=== PATIENT | female | born 1935 | race Caucasian/White ===

== ENCOUNTER 2019-04-15 09:57 | Outpatient (RCR) | payer MEDICARE, OTHER | END 2019-04-19 | LOC: PT 09:57 | PROVIDERS: ATTEND Internal Medicine | DX: S83.282A Other tear of lateral meniscus, current injury, left knee, initial encounter (principal); S83.242A Other tear of medial meniscus, current injury, left knee, initial encounter; M17.12 Unilateral primary osteoarthritis, left knee; M25.562 Pain in left knee; M25.662 Stiffness of left knee, not elsewhere classified; M62.81 Muscle weakness (generalized); R26.2 Difficulty in walking, not elsewhere classified ==

== ENCOUNTER 2019-09-18 11:30 | Observation (INO) | payer MEDICARE, OTHER ==
[2019-09-16 15:09] LABS: BASOPHILS % 0.5 % (0.0-1.0); EOSINOPHILS # (AUTO) 0.2 (0.0-0.4); EOSINOPHILS % 2.3 % (0.0-6.0); HEMATOCRIT 36.4 % (34.2-44.1); HEMOGLOBIN 12.2 g/dL (12.0-16.0); LYMPHOCYTES # (AUTO) 1.7 (1.0-3.2); LYMPHOCYTES % 20.3 % (18.0-39.1); MEAN CORPUSCULAR HEMOGLOBIN 30.6 pg (28-32); MEAN CORPUSCULAR HGB CONC 33.5 g/dL (31-35); MEAN CORPUSCULAR VOLUME 91.2 fL (81-99); MONOCYTES # (AUTO) 0.8 (0.2-0.8); MONOCYTES % 10.2 % (4.4-11.3); NEUTROPHILS # (AUTO) 5.4 (2.1-6.9); NEUTROPHILS % 66.3 % (38.7-80.0); PLATELET COUNT 336 x10e3/uL (140-360); RED BLOOD COUNT 3.99 x10e6/uL (3.6-5.1)
--- NOTE | 2019-09-16 16:10 | Diagnostic Imaging Report ---
EXAMINATION: PA and lateral views of the chest. COMPARISON: None CLINICAL HISTORY: Preoperative study for back surgery DISCUSSION: The lungs are hyperinflated with increased AP diameter of the chest. No focal airspace consolidation, pleural effusion, or pneumothorax. Mild right apical pleural-parenchymal scar. Tortuosity and atherosclerotic calcification of the thoracic aorta. Normal heart size without overt pulmonary edema. Cervical spine fusion hardware and surgical anchor in the right humeral head are noted. The bones are diffusely osteopenic without acute osseous abnormality. IMPRESSION: No acute cardiopulmonary abnormalities. Pulmonary hyperinflation compatible with emphysema. Signed by: Dr. Napoleon Torres M.D. on 09/16/2019 4:07 PM
[~2019-09-18] VITALS: Ht 153.4 cm; Wt 54.9 kg
[~2019-09-18 11:30] MED LIST: ACIDOPHILUS1 EAC1 PO; BIOTIN2500 MCG PO; BUPROPION HCL100 MG PO; CALCIUM-MAGNES1 EAC8 PO; CENTRUM SILVER1 EAC3 PO; CETIRIZINE HCL10 MG PO; COQ-10100 MG PO; CRANBERRY200 MG PO; FLAXSEED1000 MG PO; HYDROCODONE-IB1 EAC1 PO; I CAP PO; LEVOTHYROXINE50 MCG PO; METHOCARBAMOL750 MG PO; MILK THISTLE140 M1 PO; OMEGA-3 1,0001 EACH PO; PANTOPRAZOLE SO40 MG PO; PLAVIX75 MG PO; PREDNISONE2.5 MG PO; PREDNISONE50 MG; SIMVASTATIN40 MG PO; TRIMETHOPRIM100 MG PO; VITAMIN C500 M4 PO; [UNRECOGNIZED DRUG - OTHER] PO
--- OUTSIDE RECORDS SUMMARY | 2019-09-18 11:33 | XMS REPORT ---
Author Author [facility] Address Unknown Phone Unavailable Care Team Providers Care Twisting Press Operator Name Role Phone SHIVAM MATTHEWS Unavailable Unavailable Problems This patient has no known problems. Allergies, Adverse Reactions, Alerts This patient has no known allergies or adverse reactions. Medications This patient has no known medications. Encounters Start Date/Time End Date/Time Encounter Type Admission Type Attending Clinicians Care Facility Care Department Encounter ID 2019-08-10 14:21:00 2019-08-10 14:21:00 Emergency E [facility] [id number] 2019-06-03 21:20:00 2019-06-03 21:20:00 Emergency E [facility] MED [id number] Results Test Description Test Time Test Comments Text Results Atomic Results Result Comments CHEST 2 VIEWS 2019-09-16 16:05:00 [place] [id number] Patient Name: SHAHID TAPIA MR #: [id number] : 1935 Age/Sex: 83/F Req #: [id number] Adm Physician: Ordered by: ALMA HANNA MD Report #: [id number] Location: DX Room/Bed: Procedure: [id number] DX/CHEST 2 VIEWS Exam Date: 09/16/19 Exam Time: 1520 REPORT STATUS: Signed EXAMINATION: PA and lateral views of the chest. MARCI RISON: None CLINICAL HISTORY: Preoperative study for back surgery DISCUSSION: The lungs are hyperinflated with increased AP diameter of the chest. No focal airspace consolidation, pleural effusion, or pneumothorax. Mild right apical pleural-parenchymal scar. Tortuosity and atherosclerotic calcification of the thoracic aorta. Normal heart size without overt pulmonary edema. Cervical spine fusion hardware and surgical anchor in the right humeral head are noted. The bones are diffusely osteopenic without acute osseous abnormality. IMPRESSION: No acute cardiopulmonary abnormalities. Pulmonary hyperinflation compatible with emphysema. Signed by: Dr. Ayaan Hawk M.D. on 09/16/2019 4:07 PM Dictated By: AYAAN HAWK MD 1607 Transcribed By: JULIANN on 09/16/19 1607 COPY TO: ALMA HANNA MD SCR MAMM BILATERAL RAE CAD DIGITAL 2019-05-30 10:32:11 - SCR MAMM BILATERAL RAE CAD DIGITALBILATERAL DIGITAL SCREENING MAMMOGRAM 3D/2D WITH CAD: 05/30/2019CLINICAL: Asymptomatic. Digital breast tomosynthesis was performed in addition to routine CC and MLO views. Current mammographic images were evaluated by either a [employer] M-Vu or a [employer] ImageChecker CAD (computer aided detection system). Comparison is made to exams dated 05/20/2018 mammogram, 04/21 mammogram, and 05/08/2016 mammogram - [facility]. There are scattered fibroglandular tissues in both breasts. No suspicious mass, architectural distortion, malignant type calcification, or lymph node abnormality detected. Breast architecture is stable compared to prior exams.IMPRESSION: NEGATIVEThere is no mammographic evidence of malignancy. Resume annual screening mammography in one year. Tina Jacques M.D. ar/penrad:05/30/2019 10:32:11 Thimble Press Operator: Aleena ST, [facility] sent: BIRADS 1-2 Normal Mammogram BI-RADS: 1 Negative
--- OUTSIDE RECORDS SUMMARY | 2019-09-18 11:33 | XMS REPORT | Summary of Care ---
Author Author [facility] - Health Organization [facility] - Health Address Unknown Phone Unavailable Care Team Providers Care Dog Behaviorist Name Role Phone Violette Deleon MD PCP Reason for Visit * Reason Comments Medical Records Encounter Details Care Team Description Date Type Department Violette Deleon MD [address] [place] [address] Medical Records 04/18/2019 Telephone [facility] [address] [place] [address] Allergies No Known Allergiesdocumented as of this encounter (statuses as of 04/18/2019) Medications End Date Status Medication Sig Dispensed Refills Start Date Active OMEGA-3 FATTY ACIDS/FISH Take 360 mg 0 OIL (OMEGA 3 FISH OIL by mouth ORAL) daily. Takes 4 caps daily Active Biotin 10,000 mcg Cap Take 10,000 0 mcg by mouth daily. Takes 2 caps daily Active FOLIC Take by 0 ACID/MULTIVIT-MIN/LUTEIN mouth daily. (CENTRUM SILVER ORAL) Active MAGNESIUM ORAL Take 500 mg 0 by mouth 2 (two) times daily. Active LACTOBACILLUS ACIDOPHILUS Take 50 0 (ACIDOPHILUS ORAL) billion units by mouth daily. Takes 2 daily Active FLAXSEED OIL ORAL Take 1.2 g by 0 mouth daily. Active COQ10, LIPOSOMAL Take 200 mg 0 UBIQUINOL, ORAL by mouth daily. Active MILK THISTLE ORAL Take by 0 mouth daily. Active Cetirizine 10 mg capsule Take 10 mg by 0 mouth daily. Active calcium carbonate 500 mg Take 1 0 calcium (1,250 mg) capsule by 7 capsule mouth 2 (two) times daily with meals. Active clopidogrel 75 mg Take 1 tablet 90 tablet 3 tabletIndications: by mouth 9 Coronary artery disease daily. involving [place] coronary artery of [place] heart without angina pectoris, Transient cerebral ischemia, unspecified type Active levothyroxine 25 mcg Take 1 tablet 90 tablet 3 tablet by mouth 9 every morning. Active estradiol (ESTRACE) 0.01 Insert 0.5 g 42.5 g 1 % (0.1 mg/gram) vaginal into vagina 9 creamIndications: weekly. Recurrent UTI Active trimethoprim 100 mg Take 1 tablet 90 tablet 2 tablet by mouth 9 daily. Active pantoprazole 40 mg EC Take 1 tablet 90 tablet 1 tabletIndications: by mouth 9 Gastroesophageal reflux daily. disease, esophagitis presence not specified Active PREDNISONE 2.5 mg TAKE 1 TABLET 90 tablet 1 tabletIndications: BY MOUTH 9 Secondary adrenal EVERY MORNING insufficiency Active buPROPion XL (WELLBUTRIN Take 2 180 tablet 1 XL) 150 mg 24 hr tablet tablets by 9 mouth daily. Active simvastatin 40 mg TAKE 1 TABLET 90 tablet 1 tabletIndications: Mixed BY MOUTH AT 9 hyperlipidemia BEDTIME documented as of this encounter (statuses as of 04/18/2019) Active Problems Patient Care Coordination Note Hypertension (High Blood Pressure) Plan of Care My Hypertension Goals are the following: ? Strive for a normal blood pressure of less than 140/90 ? Cholesterol- LDL ( Bad cholesterol )- less than 130 (if I have diabetes and heart disease goal is less than 70) ? Total Cholesterol- less than 200 ? Lose weight if overweight or obese and follow the Weight Loss Care Plan ? Stop smoking and avoid second hand smoke My Hypertension Care Plan includes the following: ? Check and record blood pressure at least once a week and write results on blood pressure log ? Exercise at least 30 minutes a day 5 days a week. This can be in three 10 minute intervals ? Maintain a healthy weight ? Follow a DASH diet (Dietary Approaches to Stop Hypertension) o Eat a diet rich in fruits, vegetables, and low fat dairy products and low in saturated and total fat o Reduce dietary sodium to below 1500mg per day o Limit alcohol to two drinks per day for most men and one drink per day for most women and general internist weight men ? If I am a smoker, stop smoking ? Manage stress by identifying three ways to reduce stress ? BetBoxhart ([email or web address]) is an online tool that will allow me to review lab results and portions of my health record, and to communicate with healthcare providers as needed. If I do not have a JolieBox account, I will discuss this with my healthcare team Problem Noted Date Bilateral carotid artery stenosis 11/29/2018 Overview: Dr. Chester Landon, rec'd medical therapy Adrenal insufficiency 09/18/2018 Asthma 10/18/2016 Overview: [facility] Left leg weakness 08/08/2016 Balance problem 08/08/2016 Hypercortisolemia 07/12/2016 Chronic back pain greater than 3 months duration 12/23/2015 Truncal muscle weakness 12/23/2015 Incomplete RBBB 07/13/2015 Overview: on ekg Vitamin D deficiency 12/08/2014 Overview: ICD10 Diagnosis Term Marketing Production Coordinator Utility Elevated LFTs 05/28/2014 Overview: viral hepatitis panel negative 01/11/16 Hyponatremia 06/04/2012 Abnormal CBC 06/04/2012 Senile osteoporosis 05/10/2012 Hypothyroidism 05/10/2012 Overview: ICD10 Diagnosis Term Marketing Production Coordinator Utility Personal history of other diseases of digestive system Hyperlipidemia GERD (gastroesophageal reflux disease) Essential hypertension, benign Depressive disorder Overview: ICD10 Diagnosis Term Marketing Production Coordinator Utility CAD (coronary artery disease) Overview: [facility]s [facility] Dr. Landon at [facility], non-occlusive, normal MIBI 10/06 MVP (mitral valve prolapse) Overview: Dr. Chester Landon, echo in 08/2018 with EF 60% TIA (transient ischemic attack) Overview: On plavix DJD (degenerative joint disease), lumbar Overview: has had previous injections CKD (chronic kidney disease) stage 3, GFR 30-59 ml/min Overview: gfr 53 01/11/16; increasing creatinine Dextroscoliosis documented as of this encounter (statuses as of 04/18/2019) Resolved Problems Problem Noted Date Resolved Date HLD (hyperlipidemia) 05/26/2013 07/13/2015 Other malaise and fatigue 05/10/2012 07/13/2015 documented as of this encounter (statuses as of 04/18/2019) Immunizations Name Administration Dates Next Due Influenza High Dose 05/21/2017, 05/12/2016, 05/13/2015, 05/28/2014 Influenza Virus Vaccine 06/03/2018 Pneumococcal 13 05/12/2016, 05/13/2015 Conjugate, PCV13 (Prevnar 13) Pneumococcal 01/23/2018, 03/28/2015 Polysaccharide, PPSV23 (PNEUMOVAX) Tdap 12/10/2017 Zoster Vaccine 02/24/2019, 12/16/2018 Recombinant documented as of this encounter Social History Date Tobacco Use Types Packs/Day Years Used Never Smoker Smokeless Tobacco: Never Used Drinks/Week oz/Week Comments Alcohol Use 0 Standard drinks or equivalent 0.0 wine, social Yes Sex Assigned at Date Recorded Not on file Industry Job Start Date Occupation Not on file Not on file Not on file Travel End Travel History Travel Start No recent travel history available. documented as of this encounter Last Filed Vital Signs Not on filedocumented in this encounter Plan of Treatment Care Team Description Date Type Specialty Domingo Meng [facility] [address] [place] [phone] 05/05/2019 Office Visit Obstetrics & Gynecology Anneliese Martin MD [address] [place] [address] [phone] 05/26/2019 Office Visit [facility]in[facility] [address] [place], [place] [phone] 08/15/2019 Office Visit Internal Medicine Health Maintenance Due Date Last Done Comments Medicare Wellness Visit 1999 Osteoporosis Screening 1999 INFLUENZA VACCINE (#1) 2019 06/03/2018, 05/21/2017, 05/12/2016, Additional history exists DTaP,Tdap,and Td Vaccines 12/11/2027 12/10/2017 (2 - Td) PNEUMOCOCCAL VACCINES 65+ Completed 01/23/2018, 05/12/2016, 05/13/2015, Additional history exists Zoster Recombinant Completed 02/24/2019, 12/16/2018 Vaccine (SHINGRIX) documented as of this encounter Results Not on filedocumented in this encounter Insurance Type Payer Benefit Subscriber ID Effective Phone Address Plan / Dates Group Medicare Adv [facility] [id number] 2018-P MANAGED MEDICARE MEDICARE resent COMPLETE documented as of this encounter Advance Directives Patient Process Development Technician Explanation Type Date Recorded Advance Directives 05/04/2016 9:37 AM and Living Will Power of Medicare Contact Specialist 05/04/2016 9:37 AM
--- OUTSIDE RECORDS SUMMARY | 2019-09-18 11:33 | XMS REPORT | Summary of Care ---
Author Author [facility] - Health Organization [facility] Address Unknown Phone Unavailable Care Team Providers Care Inking Machine Tender Name Role Phone Violette Deleon MD PCP Encounter Details Care Team Description Date Type Department Violette Deleon MD [address] [place], [place] [id number] 03/28/2019 Patient Secure [facility] [address] [place] [address] Allergies No Known Allergiesdocumented as of this encounter (statuses as of 03/28/2019) Medications End Date Status Medication Sig Dispensed [...] mouth 9 Coronary artery disease daily. involving [place] coronary artery of [place] heart without angina pectoris, Transient cerebral ischemia, [...] Mixed BY MOUTH AT 9 hyperlipidemia BEDTIME 04/01/2019 Active Nitrofurantoin&Nit. Take 1 28 capsule 0 Macrocryst (MACROBID) 100 capsule by 9 mg capsuleIndications: mouth 2 (two) Acute cystitis without times daily hematuria for 14 days. documented as of this encounter (statuses as of 03/28/2019) Active Problems Patient Care Coordination Note Hypertension [...] drink per day for most women and digital developer weight men ? If I am a smoker, stop smoking ? Manage stress by identifying three ways to reduce stress ? Bedloo ([email or web address]) is an online tool that will allow me to review lab results and portions of my health record, and to communicate with healthcare providers as needed. If I do not have a Bedloo account, I will discuss this with my healthcare team Problem Noted Date Bilateral carotid artery stenosis 11/29/2018 Overview: Dr. Chester Landon, rec'd medical therapy Adrenal insufficiency 09/18/2018 Asthma 10/18/2016 Overview: [facility] Left leg weakness 08/08/2016 Balance problem 08/08/2016 Hypercortisolemia 07/12/2016 Chronic back pain greater than 3 months duration 12/23/2015 Truncal muscle weakness 12/23/2015 Incomplete RBBB 07/13/2015 Overview: on ekg Vitamin D deficiency 12/08/2014 Overview: ICD10 Diagnosis Term Program Development Specialist Utility Elevated LFTs 05/28/2014 Overview: viral hepatitis panel negative 01/11/16 Hyponatremia 06/04/2012 Abnormal CBC 06/04/2012 Senile osteoporosis 05/10/2012 Hypothyroidism 05/10/2012 Overview: ICD10 Diagnosis Term Program Development Specialist Utility Personal history of other diseases of digestive system Hyperlipidemia GERD (gastroesophageal reflux disease) Essential hypertension, benign Depressive disorder Overview: ICD10 Diagnosis Term Program Development Specialist Utility CAD (coronary artery disease) Overview: Follows [facility] Dr. Landon at [facility], non-occlusive, normal MIBI 10/06 MVP (mitral valve prolapse) Overview: Dr. Cehster Landon, echo in 08/2018 with EF 60% TIA (transient ischemic attack) Overview: On plavix DJD (degenerative joint disease), lumbar Overview: has had previous injections CKD (chronic kidney disease) stage 3, GFR 30-59 ml/min Overview: gfr 53 01/11/16; increasing creatinine Dextroscoliosis documented as of this encounter (statuses as of 03/28/2019) Resolved Problems Problem Noted Date Resolved Date HLD (hyperlipidemia) 05/26/2013 07/13/2015 Other malaise and fatigue 05/10/2012 07/13/2015 documented as of this encounter (statuses as of 03/28/2019) Immunizations Name Administration Dates Next Due Influenza [...] Team Description Date Type Specialty Domingo Meng [facility] [address] [place] [phone] 05/05/2019 Office Visit Obstetrics & Gynecology Anneliese Martin MD [address] [place], [place] [address] 05/26/2019 Office Visit Endocrinology Diabetes & Metabolism Violette Deleon MD [address] [place], [place] [address] 08/15/2019 Office Visit Internal Medicine Health Maintenance Due Date Last Done Comments Medicare Wellness Visit 1999 Osteoporosis Screening 1999 Zoster Recombinant 02/10/2019 12/16/2018 Vaccine (SHINGRIX) (2 of 2) INFLUENZA VACCINE 04/20/2019 06/03/2018, 05/21/2017, 05/12/2016, Additional history exists DTaP,Tdap,and Td Vaccines 12/11/2027 12/10/2017 (2 - Td) PNEUMOCOCCAL VACCINES 65+ Completed 01/23/2018, 05/12/2016, 05/13/2015 documented as of this encounter Results Not on filedocumented in this encounter Insurance Type Payer Benefit Subscriber ID Effective Phone Address Plan / Dates Group Medicare Adv O [facility] [id number] 2018-P MANAGED MEDICARE MEDICARE resent COMPLETE documented as of this encounter Advance Directives Patient Chief Crew Scheduler Explanation Type Date Recorded Advance Directives 05/04/2016 9:37 AM and Living Will Power of Metal Casket Maker 05/04/2016 9:37 AM
--- OUTSIDE RECORDS SUMMARY | 2019-09-18 11:33 | XMS REPORT | Summary of Care ---
Author Author [facility] - Health Organization [facility] Address Unknown Phone Unavailable Care Team Providers Care Delimer Name Role Phone Violette Deleon MD PCP Reason for Visit * Reason Comments Forms [facility] Evaluation Encounter Details Care Team Description Date Type Department Violette Deleon MD [address] [place] [address] Forms ([facility] Evaluation) 03/25/2019 Telephone [facility] [address] [place] [address] Allergies No Known Allergiesdocumented as [...] mouth 9 Coronary artery disease daily. involving [place] coronary artery of [place] heart without angina pectoris, Transient cerebral ischemia, [...] drink per day for most women and rolling down machine operator weight men ? If I am a smoker, stop smoking ? Manage stress by identifying three ways to reduce stress ? marinanow ([email or web address]) is an online tool that will allow me to review lab results and portions of my health record, and to communicate with healthcare providers as needed. If I do not have a marinanow account, I will discuss this with my healthcare team Problem Noted Date Bilateral carotid artery stenosis 11/29/2018 Overview: Dr. Chester Landon, rec'd medical therapy Adrenal insufficiency 09/18/2018 Asthma 10/18/2016 Overview: seeing [facility] Left leg weakness 08/08/2016 Balance problem 08/08/2016 Hypercortisolemia 07/12/2016 Chronic back pain greater than 3 months duration 12/23/2015 Truncal muscle weakness 12/23/2015 Incomplete RBBB 07/13/2015 Overview: on ekg Vitamin D deficiency 12/08/2014 Overview: ICD10 Diagnosis Term Training Consultant Utility Elevated LFTs 05/28/2014 Overview: viral hepatitis panel negative 01/11/16 Hyponatremia 06/04/2012 Abnormal CBC 06/04/2012 Senile osteoporosis 05/10/2012 Hypothyroidism 05/10/2012 Overview: ICD10 Diagnosis Term Training Consultant Utility Personal history of other diseases of digestive system Hyperlipidemia GERD (gastroesophageal reflux disease) Essential hypertension, benign Depressive disorder Overview: ICD10 Diagnosis Term Training Consultant Utility CAD (coronary artery disease) Overview: Follows [facility] Dr. Landon at [facility], non-occlusive, normal MIBI 10/06 MVP (mitral valve [...] Care Team Description Date Type Specialty Domingo Meng, [facility] [address] [place] [address] 05/05/2019 Office Visit Obstetrics & Gynecology Anneliese Martin MD [address] [place] [address] [phone] 05/26/2019 Office [facility]in[facility] [address] [place], [place] [address] 08/15/2019 Office Visit Internal Medicine Health Maintenance [...] Address Plan / Dates Group Medicare Adv HMO [facility] [id number] 2018-P MANAGED MEDICARE MEDICARE resent COMPLETE documented as of this encounter Advance Directives Patient Supervisor Publications Production Explanation Type Date Recorded Advance Directives 05/04/2016 9:37 AM and Living Will Power of Double End Production Grinder 05/04/2016 9:37 AM
--- OUTSIDE RECORDS SUMMARY | 2019-09-18 11:33 | XMS REPORT | Summary of Care ---
Author Author [facility] [[email or web address] - Health Organization [facility] [[email or web address]] - Health Address Unknown Phone Unavailable Care Team Providers Care Employee Benefits Administrator Name Role Phone Violette Deleon MD PCP Encounter Details Care Team Description Date Type Department Doctor Unassigned, [place] [address] [place] [id number] 03/21/2019 Orders Only [facility] [[email or web address]] [address] [place] [address] Allergies No Known Allergiesdocumented as of this encounter (statuses as of 03/21/2019) Medications End Date Status Medication Sig Dispensed [...] mouth 9 Coronary artery disease daily. involving eyak coronary artery of eyak heart without angina pectoris, Transient cerebral ischemia, [...] as of this encounter (statuses as of 03/21/2019) Active Problems Patient Care Coordination Note Hypertension [...] drink per day for most women and belt buckle maker weight men ? If I am a smoker, stop smoking ? Manage stress by identifying three ways to reduce stress ? Bryce Patelwww.[email or web address]/[employer]) is an online tool that will allow me to review lab results and portions of my health record, and to communicate with healthcare providers as needed. If I do not have a [employer] account, I will discuss this with my healthcare team Problem Noted Date Bilateral carotid artery stenosis 11/29/2018 Overview: Dr. Chestre Landon, rec'd medical therapy Adrenal insufficiency 09/18/2018 Asthma 10/18/2016 Overview: seeing [facility] Left leg weakness 08/08/2016 Balance problem 08/08/2016 Hypercortisolemia 07/12/2016 Chronic back pain greater than 3 months duration 12/23/2015 Truncal muscle weakness 12/23/2015 Incomplete RBBB 07/13/2015 Overview: on ekg Vitamin D deficiency 12/08/2014 Overview: ICD10 Diagnosis Term Metallography Teacher Utility Elevated LFTs 05/28/2014 Overview: viral hepatitis panel negative 01/11/16 Hyponatremia 06/04/2012 Abnormal CBC 06/04/2012 Senile osteoporosis 05/10/2012 Hypothyroidism 05/10/2012 Overview: ICD10 Diagnosis Term Metallography Teacher Utility Personal history of other diseases of digestive system Hyperlipidemia GERD (gastroesophageal reflux disease) Essential hypertension, benign Depressive disorder Overview: ICD10 Diagnosis Term Metallography Teacher Utility CAD (coronary artery disease) Overview: Follows [facility] Dr. Landno at [facility], non-occlusive, normal MIBI 10/06 MVP (mitral valve prolapse) Overview: Dr. Chester Landon, echo in 08/2018 with EF 60% TIA (transient ischemic attack) Overview: On plavix DJD (degenerative joint disease), lumbar Overview: has had previous injections CKD (chronic kidney disease) stage 3, GFR 30-59 ml/min Overview: gfr 53 01/11/16; increasing creatinine Dextroscoliosis documented as of this encounter (statuses as of 03/21/2019) Resolved Problems Problem Noted Date Resolved Date HLD (hyperlipidemia) 05/26/2013 07/13/2015 Other malaise and fatigue 05/10/2012 07/13/2015 documented as of this encounter (statuses as of 03/21/2019) Immunizations Name Administration Dates Next Due Influenza High Dose 05/21/2017, 05/12/2016, 05/13/2015, 05/28/2014 Influenza Virus Vaccine 06/03/2018 Pneumococcal 13 05/12/2016, 05/13/2015 Conjugate, PCV13 (Prevnar 13) Pneumococcal 01/23/2018 Polysaccharide, PPSV23 (PNEUMOVAX) Tdap 12/10/2017 Zoster Vaccine 12/16/2018 Recombinant documented as of this encounter [...] Team Description Date Type Specialty Domingo Meng [facility] [address] [place] [phone] 05/05/2019 Office Visit Obstetrics & Gynecology Anneliese Martin MD [address] [place] [address] [phone] 05/26/2019 [facility] [address] [place], [place] [address] 08/15/2019 Office Visit Internal Medicine Health Maintenance Due Date Last Done Comments Medicare Wellness Visit 1999 Osteoporosis Screening 1999 Zoster Recombinant 02/10/2019 12/16/2018 Vaccine (SHINGRIX) (2 of 2) INFLUENZA VACCINE 04/20/2019 06/03/2018, 05/21/2017, 05/12/2016, Additional history exists DTaP,Tdap,and Td Vaccines 12/11/2027 12/10/2017 (2 - Td) PNEUMOCOCCAL VACCINES 65+ Completed 01/23/2018, 05/12/2016, 05/13/2015 documented as of this encounter Procedures Comments Procedure Name Priority Date/Time Associated Diagnosis VACCINATIONS - CONSENTS, Routine 03/21/2019 ELIGIBILITY, HISTORY 12:01 AM CDT documented in this encounter Results Not on filedocumented in this encounter Insurance Type Payer Benefit Subscriber ID Effective Phone Address Plan / Dates Group Medicare Adv HMO [facility] - AARP [id number] 2018-P MANAGED MEDICARE MEDICARE resent COMPLETE documented as of this encounter Advance Directives Patient Metal Buffer Explanation Type Date Recorded Advance Directives 05/04/2016 9:37 AM and Living Will Power of Junior Data Analyst 05/04/2016 9:37 AM
--- OUTSIDE RECORDS SUMMARY | 2019-09-18 11:33 | XMS REPORT | Summary of Care ---
Author Author [facility] - Health Organization [facility] - Health Address Unknown Phone Unavailable Care Team Providers Care Leather Crafter Name Role Phone Violette Deleon MD PCP Reason for Visit * Reason Comments DYSURIA x 1 week Encounter Details Care Team Description Date Type Department Violette Deleon MD [address] [place], [place] [phone] Acute cystitis without hematuria (Primary Dx) 03/18/2019 Office Visit [facility] [address] [place] [phone] Allergies No Known Allergiesdocumented as of this encounter (statuses as of 03/18/2019) Medications End Date Status Medication Sig Dispensed [...] mouth 9 Coronary artery disease daily. involving [place] coronary artery of [place] heart without angina pectoris, Transient cerebral ischemia, [...] as of this encounter (statuses as of 03/18/2019) Active Problems Patient Care Coordination Note Hypertension [...] drink per day for most women and access nurse weight men ? If I am a smoker, stop smoking ? Manage stress by identifying three ways to reduce stress ? [employer] (www.[email or web address]/[employer]) is an online tool that will allow me to review lab results and portions of my health record, and to communicate with healthcare providers as needed. If I do not have a [employer] account, I will discuss this with my healthcare team Problem Noted Date Bilateral carotid artery stenosis 11/29/2018 Overview: Dr. Chester Landon, rec'd medical therapy Adrenal insufficiency 09/18/2018 Asthma 10/18/2016 Overview: seeing [facility] Left leg weakness 08/08/2016 Balance problem 08/08/2016 Hypercortisolemia 07/12/2016 Chronic back pain greater than 3 months duration 12/23/2015 Truncal muscle weakness 12/23/2015 Incomplete RBBB 07/13/2015 Overview: on ekg Vitamin D deficiency 12/08/2014 Overview: ICD10 Diagnosis Term Nutrition Internship Utility Elevated LFTs 05/28/2014 Overview: viral hepatitis panel negative 01/11/16 Hyponatremia 06/04/2012 Abnormal CBC 06/04/2012 Senile osteoporosis 05/10/2012 Hypothyroidism 05/10/2012 Overview: ICD10 Diagnosis Term Nutrition Internship Utility Personal history of other diseases of digestive system Hyperlipidemia GERD (gastroesophageal reflux disease) Essential hypertension, benign Depressive disorder Overview: ICD10 Diagnosis Term Nutrition Internship Utility CAD (coronary artery disease) Overview: Follows [facility] Dr. Landon at [facility], non-occlusive, normal MIBI 10/06 MVP (mitral valve prolapse) Overview: Dr. Chester Landon, echo in 08/2018 with EF 60% TIA (transient ischemic attack) Overview: On plavix DJD (degenerative joint disease), lumbar Overview: has had previous injections CKD (chronic kidney disease) stage 3, GFR 30-59 ml/min Overview: gfr 53 01/11/16; increasing creatinine Dextroscoliosis documented as of this encounter (statuses as of 03/18/2019) Resolved Problems Problem Noted Date Resolved Date HLD (hyperlipidemia) 05/26/2013 07/13/2015 Other malaise and fatigue 05/10/2012 07/13/2015 documented as of this encounter (statuses as of 03/18/2019) Immunizations Name Administration Dates Next Due Influenza [...] of this encounter Last Filed Vital Signs Reading Time Taken Comments Vital Sign 138/80 03/18/2019 10:27 AM CDT Blood Pressure 71 03/18/2019 10:27 AM CDT Pulse 36.6 C (97.9 F) 03/18/2019 10:27 AM CDT Temperature 16 03/18/2019 10:27 AM CDT Respiratory Rate - - Oxygen Saturation - - Inhaled Oxygen Concentration 59 kg (130 lb) 03/18/2019 10:27 AM CDT Weight 162.6 cm (5' 4") 03/18/2019 10:27 AM CDT Height 22.31 03/18/2019 10:27 AM CDT Body Mass Index documented in this encounter Patient Instructions * Patient Instructions* Violette Deleon MD - 03/18/2019 10:20 AM CDT If you have not received your lab or test results in one week, please call our o ffice. If you have activated your [employer] account, the results can be released t o you as well. documented in this encounter Progress Notes * Violette Deleon MD - 03/18/2019 10:20 AM CDT chief complaint Shahid Booth is a 83 year old female here for f/u on uti. HPI: Pt. Had a nurse visit on 02/27/2019 for uti symptoms. Culture grew e.coli, which was sensitive to the macrobid given to her. She was given a 7 day course of it. However, the e.coli was resistent to bactrim and she is on daily trimethoprim f or uti prevention, but this was first uti in several months for the patient. She was asymptomatic about about a week after stopping the antibiotic, but then she started developing dysuria, increased urinary urgency and frequency. No hematur ia. Some nausea in the morning. No vomiting. No diarrhea. No flank pain. No feve r. Past Medical History: Diagnosis Date Asthma 10/2016 seeing [facility] CAD (coronary artery disease) CKD (chronic kidney disease) stage 3, GFR 30-59 ml/min gfr 53 01/11/16; increasing creatinine Depressive disorder, not elsewhere classified Dextroscoliosis DJD (degenerative joint disease), lumbar has had previous injections Elevated LFTs 05/28/2014 viral hepatitis panel negative 01/11/16 Essential hypertension, benign GERD (gastroesophageal reflux disease) Hyperlipidemia Hyposmolality and/or hyponatremia 06/04/2012 chronic work-up negative. 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 PREDNISONE 2.5 mg tablet TAKE 1 TABLET BY MOUTH EVERY MORNING pantoprazole 40 mg EC tablet Take 1 tablet by mouth daily. trimethoprim 100 mg tablet Take 1 tablet by mouth daily. estradiol (ESTRACE) 0.01 % (0.1 mg/gram) vaginal cream Insert 0.5 g into vag ariane weekly. clopidogrel 75 mg tablet Take 1 tablet by mouth daily. levothyroxine 25 mcg tablet Take 1 tablet by mouth every morning. calcium carbonate 500 mg calcium (1,250 mg) capsule Take 1 capsule by mouth 2 (two) times daily with meals. Biotin 10,000 mcg Cap Take 10,000 mcg by mouth daily. Takes 2 caps daily Cetirizine 10 mg capsule Take 10 mg by mouth daily. COQ10, LIPOSOMAL UBIQUINOL, ORAL Take 200 mg by mouth daily. FLAXSEED OIL ORAL Take 1.2 g by mouth daily. FOLIC ACID/MULTIVIT-MIN/LUTEIN (CENTRUM SILVER ORAL) Take by mouth daily. LACTOBACILLUS ACIDOPHILUS (ACIDOPHILUS ORAL) Take 50 billion units by mouth daily. Takes 2 daily MAGNESIUM ORAL Take 500 mg by mouth 2 (two) times daily. MILK THISTLE ORAL Take by mouth daily. OMEGA-3 FATTY ACIDS/FISH OIL (OMEGA 3 FISH OIL ORAL) Take 360 mg by mouth da melissa. Takes 4 caps daily Review of Systems: General: denies fever, chills, wt.loss/gain, night sweats, HEENT: denies headache,blurry vision, ear pain, sinus/nasal congestion, sore throat CV: denies chest pain, palptiations, hx of angina Respiratory:denies dyspnea, cough, hemoptysis, PND, orthopnea GI: denies abdominal pain, nausea, vomiting, diarrhea, constipation, melena : denies vaginal discharge Musculoskeletal: denies myalgias, Neuro: denies weakness, paresthesias, dizziness, and seizures Skin: denies rash, hair changes, acne, PE: BP 138/80 (BP Location: Left arm, Patient Position: Sitting) | Pulse 71 | Temp 36.6 C (97.9 F) (Oral) | Resp 16 | Ht 5' 4" (1.626 m) | Wt 130 lb (59 kg) | BMI 22.31 kg/m General: NAD, A&0 X3 HEENT: PERRLA, EOMI: OP: no erythema, no tonsillar exudate, no lesions NECK: no jvd,maritza, bruit CV: RR, s1/s2, ii/vi greg LUNGS: CTA bilaterally, no wheezes/rales/crackles ABD: soft, NT/ND, +bs in all 4 quadrants, no HSM BACK: no cva tenderness EXT: no c/c/e Results for SHAHID BOOTH ( ) as of 03/18/2019 11:02 Ref. Range 03/18/2019 00:00 POCT PH U Latest Ref Range: 5 - 8 mg/dl 7 POCT U SP GRAV Latest Ref Range: 1.005 - 1.025 mg/dl 1.000 (A) POCT U GLU Latest Ref Range: Negative - Negative negative POCT U BLD Latest Ref Range: Negative - Negative 250+ POCT U KETONE Latest Ref Range: Negative - Negative negative POCT U PROT Latest Ref Range: Negative - Negative 30+ POCT U UROBILI Latest Ref Range: 0.2 - 1 mg/dl negative POCT U BILI Latest Ref Range: Negative - Negative negative POCT U NIT Latest Ref Range: Negative - Negative positive POCT U LEUK EST Latest Ref Range: Negative - Negative 2+ Assessment and Plan: Acute cystitis without hematuria (primary encounter diagnosis) Comment: recurrent uti. Will treat for 14 days. If this culture shows resistance to bactrim, may need to change back the trimethoprim to daily nitrofurantoin for prevention Plan: POCT URINALYSIS W SPECIFIC GRAVITY, URINE CULTURE, Nitrofurantoin&Nit. Macrocryst (MACROBID) 100 mg capsule Drink plenty of water Plan of care, desired health behaviors, goals and medications discussed with pat ient and educational resources and self-management tools provided. Patient/famil y/guardian voices understanding. Barriers to care: none Ability to manage care: good Side effects of medications explained to the patient. Call or rTC if sx worsen or do not improve as expected Violette Deleon MD 03/18/2019 11:06 AM documented in this encounter Plan of Treatment Care Team Description Date Type Specialty Domingo Meng, [facility] [address] [place] [phone] 05/05/2019 Office Visit Obstetrics & Gynecology Anneliese Martin MD [address] [place], [place] [address] 05/26/2019 Office Visit Endocrinology Diabetes & Metabolism Violette Deleon MD [address] [place] [address] 08/15/2019 Office Visit Internal Medicine Order Schedule Name Type Priority Associated Diagnoses Ordered: 03/18/2019 URINE CULTURE LAB Routine Acute cystitis without hematuria Health Maintenance Due Date Last Done Comments Medicare Wellness Visit 1999 Osteoporosis Screening 1999 Zoster Recombinant 02/10/2019 12/16/2018 Vaccine (SHINGRIX) (2 of 2) INFLUENZA VACCINE 04/20/2019 06/03/2018, 05/21/2017, 05/12/2016, Additional history exists DTaP,Tdap,and Td Vaccines 12/11/2027 12/10/2017 (2 - Td) PNEUMOCOCCAL VACCINES 65+ Completed 01/23/2018, 05/12/2016, 05/13/2015 documented as of this encounter Procedures Comments Procedure Name Priority Date/Time Associated Diagnosis POCT URINALYSIS Routine 03/18/2019 Acute cystitis without hematuria documented in this encounter Results * POCT URINALYSIS W SPECIFIC GRAVITY (03/18/2019) POCT U SP GRAV 1.000 (A) 1.005 - 1.025 mg/dl POCT PH U 7 5 - 8 mg/dl POCT U LEUK EST 2+ Negative - Negative POCT U NIT positive Negative - Negative POCT U PROT 30+ Negative - Negative POCT U GLU negative Negative - Negative POCT U KETONE negative Negative - Negative POCT U UROBILI negative 0.2 - 1 mg/dl POCT U BILI negative Negative - Negative POCT U BLD 250+ Negative - Negative POCT U COLOR POCT U APPEAR Specimen Urine - URINE, CLEAN CATCH documented in this encounter Visit Diagnoses Diagnosis Acute cystitis without hematuria - Primary Acute cystitis documented in this encounter Insurance Type Payer Benefit Subscriber ID Effective Phone Address Plan / Dates Group Medicare Adv O [facility] - AARP [id number] 2018-P MANAGED MEDICARE MEDICARE resent COMPLETE documented as of this encounter Advance Directives Patient Forensic Artist Explanation Type Date Recorded Advance Directives 05/04/2016 9:37 AM and Living Will Power of Renovation Plant Supervisor 05/04/2016 9:37 AM
--- OUTSIDE RECORDS SUMMARY | 2019-09-18 11:33 | XMS REPORT | Summary of Care ---
Author Author [facility] - Health Organization [facility] - Health Address Unknown Phone Unavailable Care Team Providers Care Regulatory Affairs Manager Name Role Phone Violette Deleon MD PCP Reason for Visit * Reason Comments Forms [facility] Evaluation Encounter Details Care Team Description Date Type Department Violette Deleon MD [address] [place] [address] Forms ([facility]-PT Evaluation) 03/13/2019 Telephone [facility] [address] [place] [address] Allergies No Known Allergiesdocumented as of this encounter (statuses as of 03/14/2019) Medications End Date Status Medication Sig Dispensed [...] mouth 9 Coronary artery disease daily. 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 If I am a smoker, stop smoking ? Manage stress by identifying three ways to reduce stress ? [employer] (www.[email or web address]/[employer]) is an online tool that will allow me to review lab results and portions of my health record, and to communicate with healthcare providers as needed. If I do not have a [employer] account, I will discuss this with my healthcare team Problem Noted Date Bilateral carotid artery stenosis 11/29/2018 Overview: Dr. Chester Landon, rec'd medical therapy Adrenal insufficiency 09/18/2018 Asthma 10/18/2016 Overview: seeing [facility] Left leg weakness 08/08/2016 Balance problem 08/08/2016 Hypercortisolemia 07/12/2016 Chronic back pain greater than 3 months duration 12/23/2015 Truncal muscle weakness 12/23/2015 Incomplete RBBB 07/13/2015 Overview: on ekg Vitamin D deficiency 12/08/2014 Overview: ICD10 Diagnosis Term Graduate Engineer Utility Elevated LFTs 05/28/2014 Overview: viral hepatitis panel negative 01/11/16 Hyponatremia 06/04/2012 Abnormal CBC 06/04/2012 Senile osteoporosis 05/10/2012 Hypothyroidism 05/10/2012 Overview: ICD10 Diagnosis Term Graduate Engineer Utility Personal history of other diseases of digestive system Hyperlipidemia GERD (gastroesophageal reflux disease) Essential hypertension, benign Depressive disorder Overview: ICD10 Diagnosis Term Graduate Engineer Utility CAD (coronary artery disease) Overview: Follows [facility] Dr[facility] Landon at [facility], non-occlusive, normal MIBI 10/06 MVP (mitral valve prolapse) Overview: Dr. Chester Landon, echo in 08/2018 with EF 60% TIA (transient ischemic attack) Overview: On plavix DJD (degenerative joint disease), lumbar Overview: has had previous injections CKD (chronic kidney disease) stage 3, GFR 30-59 ml/min Overview: gfr 53 01/11/16; increasing creatinine Dextroscoliosis documented as of this encounter (statuses as of 03/14/2019) Resolved Problems Problem Noted Date Resolved Date HLD (hyperlipidemia) 05/26/2013 07/13/2015 Other malaise and fatigue 05/10/2012 07/13/2015 documented as of this encounter (statuses as of 03/14/2019) Immunizations Name Administration Dates Next Due Influenza [...] Team Description Date Type Specialty Domingo Meng [facility] [address] [place] [address] [phone] 05/05/2019 Office Visit Obstetrics & Gynecology Anneliese Martin MD [address] [place] [address] [phone] 05/26/2019 [facility] [address] [place], [place] [phone] 08/15/2019 Office Visit Internal Medicine Health Maintenance [...] Address Plan / Dates Group Medicare Adv [facility] [id number] 2018-P MANAGED MEDICARE MEDICARE resent COMPLETE documented as of this encounter Advance Directives Patient Piggery Worker Explanation Type Date Recorded Advance Directives 05/04/2016 9:37 AM and Living Will Power of Elementary Reading Specialist 05/04/2016 9:37 AM
--- OUTSIDE RECORDS SUMMARY | 2019-09-18 11:33 | XMS REPORT | Summary of Care ---
Author Author [facility] - Health Organization [facility] - [facility] Address Unknown Phone Unavailable Care Team Providers Care Materials Analyst Name Role Phone Violette Deleon MD PCP Reason for Visit * Reason Comments DYSURIA x 1 week Encounter Details Care Team Description Date Type Department Violette Deleon MD [address] [place], [place] [address] Acute cystitis without hematuria (Primary Dx) 03/18/2019 Office Visit [facility] [address] [place] [phone] Allergies No Known Allergiesdocumented as of this [...] mouth 9 Coronary artery disease daily. 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 If I am a smoker, stop smoking ? Manage stress by identifying three ways to reduce stress ? Flatora (www.[facility]/[place]) is an online tool that will allow me to review lab results and portions of my health record, and to communicate with healthcare providers as needed. If I do not have a Flatora account, I will discuss this with my healthcare team Problem Noted Date Bilateral carotid artery stenosis 11/29/2018 Overview: Dr. Chester Landon, rec'd medical therapy Adrenal insufficiency 09/18/2018 Asthma 10/18/2016 Overview: seeing [facility] Left leg weakness 08/08/2016 Balance problem 08/08/2016 Hypercortisolemia 07/12/2016 Chronic back pain greater than 3 months duration 12/23/2015 Truncal muscle weakness 12/23/2015 Incomplete RBBB 07/13/2015 Overview: on ekg Vitamin D deficiency 12/08/2014 Overview: ICD10 Diagnosis Term Dog Hair Clipper Utility Elevated LFTs 05/28/2014 Overview: viral hepatitis panel negative 01/11/16 Hyponatremia 06/04/2012 Abnormal CBC 06/04/2012 Senile osteoporosis 05/10/2012 Hypothyroidism 05/10/2012 Overview: ICD10 Diagnosis Term Dog Hair Clipper Utility Personal history of other diseases of digestive system Hyperlipidemia GERD (gastroesophageal reflux disease) Essential hypertension, benign Depressive disorder Overview: ICD10 Diagnosis Term Dog Hair Clipper Utility CAD (coronary artery disease) Overview: Follows [facility] Dr[facility] Landon at [facility], non-occlusive, normal MIBI 10/06 MVP (mitral [...] o ffice. If you have activated your Visiprise account, the results can be released t [...] Medical History: Diagnosis Date Asthma 10/2016 seeing [facility] CAD (coronary artery [...] Date Type Specialty Domingo Meng, [facility] [address] [place] [phone] 05/05/2019 Office Visit Obstetrics & Gynecology Anneliese Martin MD [address] [place], [place] [address] 05/26/2019 Office Visit Endocrinology Diabetes & Metabolism Violette Deleon MD [address] [place] [address] 08/15/2019 Office Visit Internal Medicine Order [...] / Dates Group Medicare Adv O [facility] - A[facility] [id number] 2018-P MANAGED MEDICARE MEDICARE resent COMPLETE documented as of this encounter Advance Directives Patient Shell Fisherman Explanation Type Date Recorded Advance Directives 05/04/2016 9:37 AM and Living Will Power of Shell Freezing Machine Operator 05/04/2016 9:37 AM
--- OUTSIDE RECORDS SUMMARY | 2019-09-18 11:33 | XMS REPORT | Summary of Care ---
Author Author [facility] - Health Organization [facility] - Health Address Unknown Phone Unavailable Care Team Providers Care Adult Parole Officer Name Role Phone Violette Deleon MD PCP Encounter Details Care Team Description Date Type Department Doctor Unassigned, [place] [address] [place] [phone] 04/03/2019 Orders Only [facility] [address] [place] [address] Allergies No Known Allergiesdocumented as of this encounter (statuses as of 04/03/2019) Medications End Date Status Medication Sig Dispensed [...] mouth 9 Coronary artery disease daily. 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 If I am a smoker, stop smoking ? Manage stress by identifying three ways to reduce stress ? Pervasip (www.[facility]/Yell.ru) is an online tool that will allow me to review lab results and portions of my health record, and to communicate with healthcare providers as needed. If I do not have a MyChart account, I will discuss this with my healthcare team Problem Noted Date Bilateral carotid artery stenosis 11/29/2018 Overview: Dr. Chester Landon, rec'd medical therapy Adrenal insufficiency 09/18/2018 Asthma 10/18/2016 Overview: seeing [facility] Left leg weakness 08/08/2016 Balance problem 08/08/2016 Hypercortisolemia 07/12/2016 Chronic back pain greater than 3 months duration 12/23/2015 Truncal muscle weakness 12/23/2015 Incomplete RBBB 07/13/2015 Overview: on ekg Vitamin D deficiency 12/08/2014 Overview: ICD10 Diagnosis Term Janitor Utility Elevated LFTs 05/28/2014 Overview: viral hepatitis panel negative 01/11/16 Hyponatremia 06/04/2012 Abnormal CBC 06/04/2012 Senile osteoporosis 05/10/2012 Hypothyroidism 05/10/2012 Overview: ICD10 Diagnosis Term Janitor Utility Personal history of other diseases of digestive system Hyperlipidemia GERD (gastroesophageal reflux disease) Essential hypertension, benign Depressive disorder Overview: ICD10 Diagnosis Term Janitor Utility CAD (coronary artery disease) Overview: Follow[facility] Dr. Landon at [facility], non-occlusive, normal MIBI 10/06 MVP (mitral valve prolapse) Overview: Dr. Chester Landon, echo in 08/2018 with EF 60% TIA (transient ischemic attack) Overview: On plavix DJD (degenerative joint disease), lumbar Overview: has had previous injections CKD (chronic kidney disease) stage 3, GFR 30-59 ml/min Overview: gfr 53 01/11/16; increasing creatinine Dextroscoliosis documented as of this encounter (statuses as of 04/03/2019) Resolved Problems Problem Noted Date Resolved Date HLD (hyperlipidemia) 05/26/2013 07/13/2015 Other malaise and fatigue 05/10/2012 07/13/2015 documented as of this encounter (statuses as of 04/03/2019) Immunizations Name Administration Dates Next Due Influenza [...] Team Description Date Type Specialty Domingo Meng [facility] [address] [place] [phone] 05/05/2019 Office Visit Obstetrics & Gynecology Anneliese Martin MD [address] [place] [address] [phone] 05/26/2019 [facility] [address] [place], [place] [phone] 08/15/2019 Office Visit Internal Medicine Health Maintenance Due Date Last Done Comments Medicare Wellness Visit 1999 Osteoporosis Screening 1999 INFLUENZA VACCINE 04/20/2019 06/03/2018, 05/21/2017, 05/12/2016, (Retired version) Additional history exists DTaP,Tdap,and Td Vaccines 12/11/2027 12/10/2017 (2 - Td) PNEUMOCOCCAL VACCINES 65+ Completed 01/23/2018, 05/12/2016, 05/13/2015, Additional history exists Zoster Recombinant Completed 02/24/2019, 12/16/2018 Vaccine (SHINGRIX) documented as of this encounter Procedures Comments Procedure Name Priority Date/Time Associated Diagnosis EXTERNAL PROVIDER RECORDS Routine 04/03/2019 12:01 AM CDT documented in this encounter Results Not on filedocumented in this encounter Insurance Type Payer Benefit Subscriber ID Effective Phone Address Plan / Dates Group Medicare Adv O [facility] - A[facility] [id number] 2018-P MANAGED MEDICARE MEDICARE resent COMPLETE documented as of this encounter Advance Directives Patient Compensation And Hris Analyst Explanation Type Date Recorded Advance Directives 05/04/2016 9:37 AM and Living Will Power of Director Of Testing 05/04/2016 9:37 AM
--- OUTSIDE RECORDS SUMMARY | 2019-09-18 11:34 | XMS REPORT | Summary of Care ---
Author Author [facility] - Health Organization [facility] - Health Address Unknown Phone Unavailable Care Team Providers Care Physiotherapy Assistant Name Role Phone Violette Deleon MD PCP Encounter Details Care Team Description Date Type Department Anneliese Martin MD [address] [place], [place] [phone] 05/08/2019 Patient Secure [facility] [address] [place] [phone] Allergies No Known Allergiesdocumented as of this encounter (statuses as of 05/08/2019) Medications End Date Status Medication Sig Dispensed [...] mouth 9 Coronary artery disease daily. involving [place] coronary artery of [place] heart without angina pectoris, Transient cerebral ischemia, [...] as of this encounter (statuses as of 05/08/2019) Active Problems Patient Care Coordination Note Hypertension [...] drink per day for most women and train examiner weight men ? If I am a smoker, stop smoking ? Manage stress by identifying three ways to reduce stress ? Smartpay (www.[facility] [place].[facility]/mychart) is an online tool that will allow me to review lab results and portions of my health record, and to communicate with healthcare providers as needed. If I do not have a Smartpay account, I will discuss this with my healthcare team Problem Noted Date Bilateral carotid artery stenosis 11/29/2018 Overview: Dr. 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 Landon at [facility], non-occlusive, normal MIBI 10/06 MVP (mitral valve prolapse) Overview: Dr. Chester Landon, echo in 08/2018 with EF 60% TIA (transient ischemic attack) Overview: On plavix DJD (degenerative joint disease), lumbar Overview: has had previous injections CKD (chronic kidney disease) stage 3, GFR 30-59 ml/min Overview: gfr 53 01/11/16; increasing creatinine Dextroscoliosis documented as of this encounter (statuses as of 05/08/2019) Resolved Problems Problem Noted Date Resolved Date HLD (hyperlipidemia) 05/26/2013 07/13/2015 Other malaise and fatigue 05/10/2012 07/13/2015 documented as of this encounter (statuses as of 05/08/2019) Immunizations Name Administration Dates Next Due Influenza [...] Treatment Care Team Description Date Type Specialty Anneliese Martin MD [address] [place] [address] [phone] 05/26/2019 Office Visit [facility] [address] [place], [place] [phone] 08/15/2019 Office Visit Internal Medicine Health Maintenance [...] Address Plan / Dates Group Medicare Adv [facility] - AARP [id number] 2018-P MANAGED MEDICARE MEDICARE resent COMPLETE documented as of this encounter Advance Directives Patient Supervisor Long Goods Explanation Type Date Recorded Advance Directives 05/04/2016 9:37 AM and Living Will Power of Risk Management Consultant 05/04/2016 9:37 AM
--- OUTSIDE RECORDS SUMMARY | 2019-09-18 11:34 | XMS REPORT | Summary of Care ---
Author Author LANNY Tesfaye, MALACHI Organization Unknown Address Unknown Phone Unavailable Care Team Providers Care Multiple Sclerosis Nurse Name Role Phone MALACHI DAS M.D. Unavailable Unavailable JOSEFINA CAPUTO, TAMI TAYLOR Unavailable Unavailable DILCIA CAPUTO ND, ALFREDO Unavailable Unavailable CARLOS CORDOBA DO Unavailable Unavailable BROOKE GREEN MD ND, LESVIA DONAHUE Unavailable Unavailable Malachi Das MD Unavailable Unavailable Unavailable Unavailable Functional Status Name Dates Details Functional status health issues are not documented Status: Name Dates Details Cognitive status health issues are not documented Status: Problems Name Dates Details Essential (primary) hypertension (401.9, I10) Status: Active Hyperlipidemia (272.4, E78.5) Status: Active Trace mitral valve regurgitation (424.0, I34.0) Status: Active Nondisplaced fracture of left radial styloid process, initial encounter for closed fracture (813.42, S52.515A) Status: Active Trace tricuspid valve regurgitation (397.0, I07.1) Status: Active Medications Name Dates Details Simvastatin 40 MG Oral Tablet TAKE 1 TABLET DAILY. Active Milk Thistle 200 MG Oral Capsule TAKE DIRECTED. * Refills: 0 * Start : 21-Aug-2013 Active Co Q-10 200 MG Oral Capsule * Refills: 0 * Start : 21-Aug-2013 Active Plavix 75 MG Oral Tablet TAKE 1 TABLET DAILY. * Refills: 0 * Start : 23-Jun-2015 Active Levothyroxine Sodium 25 MCG Oral Tablet TAKE 1 TABLET DAILY. * Refills: 0 * Start : 25-Nov-2015 Active buPROPion HCl ER (SR) 100 MG Oral Tablet Extended Release 12 Hour * Refills: 0 Active predniSONE 5 MG Oral Tablet TAKE 0.5 TABLET DAILY * Refills: 0 Active Trimethoprim 100 MG Oral Tablet USE DIRECTED. 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.0, J32.0) Status: Resolved History of Coronary Artery Disease (V12.59) Status: Resolved History of Deviated nasal septum (470, J34.2) Status: Resolved History of essential hypertension (V12.59, Z86.79) Status: Resolved History of Hyponatremia (276.1, E87.1) Status: Resolved History of mitral valve insufficiency (V12.59, Z86.79) Status: Resolved History of mitral valve prolapse (V12.59, Z86.79) Status: Resolved 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, 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 History of thyroid disease (V12.29, Z86.39) Status: Resolved History of transient cerebral ischemia (V12.54, Z86.73) Status: Resolved Procedures Procedure Dates Details History of Rotator Cuff Repair Completed History of Total Abdominal Hysterectomy With Removal Of Both Ovaries Completed History of Hand Surgery Completed History of Foot Surgery Left Completed History of Hernia Repair Completed History of Cataract Surgery Completed History of Shoulder Surgery Completed History of Neuroplasty Median Nerve At Carpal Tunnel Completed Immunization Name Dates Details Immunizations not documented Family History Name Dates Details Family history of Cancer Status: Active Family history of Coronary Artery Disease (V17.49) Status: Active Social History Name Dates Details - Status: Name Dates Details Never smoker Vital Signs Date Test Result Details :20 BP Systolic 106 mm[Hg] Status: Comments: Location: LUE; Position: Sitting BP Diastolic 80 mm[Hg] Status: Comments: Location: LUE; Position: Sitting :19 BP Systolic 112 mm[Hg] Status: Comments: Location: LUE; Position: Sitting BP Diastolic 80 mm[Hg] Status: Comments: Location: LUE; Position: Sitting Height 64 in Status: Weight 131 lb Status: Body Mass Index Calculated 22.49 kg/m2 Status: Body Surface Area Calculated 1.63 m2 Status: Heart Rate 77 /min Status: Comments: Location: L Radial; Quality: Normal Results Date Description Value Details Results not documented Plan of Care Name Dates Details Planned Observations Planned Goals not documented Interventions Provided Labs/Procedures/Imaging* [U] XRAY WRIST MIN 3 VWS LEFT [id number]; Done: 20 Jan 2019 Instructions Name Dates Details Instructions not documented Encounters Appointment; LESVIA SOLITARIO M.D. Encounter Diagnosis: Problem not documented On: 19-Sep-2017 13:30 Appointment; LESVIA SOLITARIO M.D. Encounter Diagnosis: Problem not documented On: 19-Mar-2018 13:30 Appointment; , SHANEL Encounter Diagnosis: Problem not documented On: 16-Sep-2018 13:45 Appointment; LESVIA SOLITARIO M.D. Encounter Diagnosis: Problem not documented On: 16-Sep-2018 14:30 Appointment; MALACHI DAS M.D. Encounter Diagnosis: Problem not documented On: 13-Dec-2018 14:00
--- OUTSIDE RECORDS SUMMARY | 2019-09-18 11:34 | XMS REPORT | Summary of Care ---
Author Author [facility] - Health Organization [facility] - [facility] Address Unknown Phone Unavailable Care Team Providers Care Building Operator Name Role Phone Violette Deleon MD PCP Reason for Visit * Reason Comments Medical Records Encounter Details Care Team Description Date Type Department Violette Deleon MD [address] [place] [address] Medical Records 04/18/2019 Telephone [facility] [address] [place] [address] Allergies No Known Allergiesdocumented as [...] mouth 9 Coronary artery disease daily. involving [place] coronary artery of [place] heart without angina pectoris, Transient cerebral ischemia, [...] drink per day for most women and dealer development manager weight men ? If I am a smoker, stop smoking ? Manage stress by identifying three ways to reduce stress ? EnergyDeckhart (www.[facility]/mychart) is an online tool that will allow me to review lab results and portions of my health record, and to communicate with healthcare providers as needed. If I do not have a POS on CLOUD account, I will discuss this with my healthcare team Problem Noted Date Bilateral carotid artery stenosis 11/29/2018 Overview: Dr. 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 Landon at [facility], non-occlusive, normal MIBI 10/06 [...] Team Description Date Type Specialty Domingo Meng [facility] [address] [place] [phone] 05/05/2019 Office Visit Obstetrics & Gynecology Anneliese Martin MD [address] [place] [address] [phone] 05/26/2019 Office Visit [facility]ocrinology Diabetes [facility] [address] [place], [place] [address] 08/15/2019 Office Visit Internal Medicine Health Maintenance [...] Address Plan / Dates Group Medicare Adv [facility] [id number] 2018-P MANAGED MEDICARE MEDICARE resent COMPLETE documented as of this encounter Advance Directives Patient Wordpress Developer Explanation Type Date Recorded Advance Directives 05/04/2016 9:37 AM and Living Will Power of Trawl Net Maker 05/04/2016 9:37 AM
--- OUTSIDE RECORDS SUMMARY | 2019-09-18 11:34 | XMS REPORT | Summary of Care ---
Author Author [facility] - Health Organization [facility] - Health Address Unknown Phone Unavailable Care Team Providers Care Staff Genetic Counselor Name Role Phone Violette Deleon MD PCP Encounter Details Care Team Description Date Type Department Doctor Unassigned, [place] [address] [place] [address] 04/25/2019 Orders Only [address] [address] Allergies No Known Allergiesdocumented as of this encounter (statuses as of 04/25/2019) Medications End Date Status Medication Sig Dispensed [...] mouth 9 Coronary artery disease daily. involving [place] coronary artery of [place] heart without angina pectoris, Transient cerebral ischemia, [...] as of this encounter (statuses as of 04/25/2019) Active Problems Patient Care Coordination Note Hypertension [...] drink per day for most women and whizzer weight men ? If I am a smoker, stop smoking ? Manage stress by identifying three ways to reduce stress ? 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 Landon at [facility], non-occlusive, normal MIBI 10/06 MVP (mitral valve prolapse) Overview: Dr. Chester Landon, echo in 08/2018 with EF 60% TIA (transient ischemic attack) Overview: On plavix DJD (degenerative joint disease), lumbar Overview: has had previous injections CKD (chronic kidney disease) stage 3, GFR 30-59 ml/min Overview: gfr 53 01/11/16; increasing creatinine Dextroscoliosis documented as of this encounter (statuses as of 04/25/2019) Resolved Problems Problem Noted Date Resolved Date HLD (hyperlipidemia) 05/26/2013 07/13/2015 Other malaise and fatigue 05/10/2012 07/13/2015 documented as of this encounter (statuses as of 04/25/2019) Immunizations Name Administration Dates Next Due Influenza [...] Team Description Date Type Specialty Domingo Meng, [facility] [address] [place] [phone] 05/05/2019 Office Visit Obstetrics & Gynecology Anneliese Martin MD [address] [place] [address] [phone] 05/26/2019 Office Visit [facility]inology [facility] [address] [place], [place] [address] 08/15/2019 Office Visit Internal Medicine Health Maintenance [...] Date/Time Associated Diagnosis EXTERNAL PROVIDER RECORDS Routine 04/25/2019 12:01 AM CDT documented in this encounter Results Not on filedocumented in this encounter Insurance Type Payer Benefit Subscriber ID Effective Phone Address Plan / Dates Group Medicare Adv O [facility] - AARP [id number] 2018-P MANAGED MEDICARE MEDICARE resent COMPLETE documented as of this encounter Advance Directives Patient Bullard Machine Operator Explanation Type Date Recorded Advance Directives 05/04/2016 9:37 AM and Living Will Power of Material Handling Supervisor 05/04/2016 9:37 AM
--- OUTSIDE RECORDS SUMMARY | 2019-09-18 11:34 | XMS REPORT | Summary of Care ---
Author Author [facility] - Health Organization [facility] - Health Address Unknown Phone Unavailable Care Team Providers Care Drum Stenciler Name Role Phone Violette Deleon MD PCP Reason for Visit * Reason Comments Forms physical therapy re-evaluation Encounter Details Care Team Description Date Type Department Violette Deleon MD [address] [place] [address] Forms (physical therapy re-evaluation) 04/16/2019 Telephone [facility] [address] [place] [address] Allergies No Known Allergiesdocumented as [...] mouth 9 Coronary artery disease daily. involving [place] tribe coronary artery of [place] tribe heart without angina pectoris, Transient cerebral ischemia, [...] drink per day for most women and public safety police weight men ? If I am a smoker, stop smoking ? Manage stress by identifying three ways to reduce stress ? MyChart ([email or web address]) is an online tool that will allow me to review lab results and portions of my health record, and to communicate with healthcare providers as needed. If I do not have a Singspiel account, I will discuss this with my healthcare team Problem Noted Date Bilateral carotid artery stenosis 11/29/2018 Overview: Dr. 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 Landon at [facility], non-occlusive, normal MIBI 10/06 MVP (mitral [...] Team Description Date Type Specialty Domingo Meng, [facility] [address] [place] [address] [phone] 05/05/2019 Office Visit Obstetrics & Gynecology Anneliese Martin MD [address] [place] [address] [phone] 05/26/2019 [facility] [address], [place] [phone] 08/15/2019 Office Visit Internal Medicine Health Maintenance [...] Phone Address Plan / Dates Group Medicare [facility] [id number] 2018-P MANAGED MEDICARE MEDICARE resent COMPLETE documented as of this encounter Advance Directives Patient Wrapper Stemmer Operator Explanation Type Date Recorded Advance Directives 05/04/2016 9:37 AM and Living Will Power of Mathematical Scientist 05/04/2016 9:37 AM
[2019-09-18] MEDS ORDERED: LIDOCAINE HCL 1% LOCAL INJ 20 ML VIAL ONE (14:25)
--- NOTE | 2019-09-18 17:26 | Diagnostic Imaging Report ---
PROCEDURE: Vertebral augmentation with cavity creation Procedural Personnel Attending physician(s): SHIVAM HOLLINS MD Fellow physician(s): None Resident physician(s): None Advanced practice provider(s): None Pre-procedure diagnosis: Lumbar compression fracture Post-procedure diagnosis: Same Indication: Osteoporotic compression fracture Additional clinical history: Patient sustained compression fracture approximately 4 weeks ago while doing leg press exercise. Complications: No immediate complications. IMPRESSION: Note that prior MRI imaging reports compression fracture of L2. However, upon fluoroscopic examination, there are 6 non-rib bearing vertebral bodies and the compression fracture is actually at L3. S1 is lumbarized. Vertebral augmentation with cavity creation of L3. A bone biopsy was not performed. Plan: Patient to PACU. Discharge when stable vs overnight observation. Decision to be made on subsequent reassessment. PROCEDURE SUMMARY: - Fluoroscopic guided vertebral augmentation with cavity creation - Additional procedure(s): None PROCEDURE DETAILS: Pre-procedure Consent: Informed consent for the procedure including risks, benefits and alternatives was obtained and time-out was performed prior to the procedure. Preparation: The site was prepared and draped using maximal sterile barrier technique including cutaneous antisepsis. Anesthesia/sedation Level of anesthesia/sedation: General anesthesia Anesthesia/sedation administered by: Anesthesiology Vertebral augmentation with cavity creation Target fracture level(s): L3 (L2 on prior imaging, please see impression for numbering difference). Pedicle access: Bipedicular Access trocar(s) gauge: 11 gauge Cavity creation device utilized: Cecilia SpineJack 5mm Cement type: [employer] HV. Manager Camp: [place] Clinically significant cement leak occurrence: No Closure The devices were removed and hemostasis was achieved with manual compression. A sterile bandage was applied. Radiation Dose Fluoroscopy time (minutes): 9.4 Reference air kerma (mGy): 151 Additional Details Additional description of procedure: None Equipment details: None Specimens removed: None Estimated blood loss (mL): Less than 10 Standardized report: [email or web address] Attestation Signer name: Shivam Hollins MD I attest that I was present for the entire procedure. I reviewed the stored images and agree with the report as written. Supplemental information: Relevant imaging review (modality confirming fracture): MRI Date of study: Outside study 2 weeks ago Baseline numeric pain rating scale: 9 On-going, routine back pain prior to VCF diagnosis: Yes Patient currently using steroids: No Failure of non-operative treatment for routine back pain prior to VCF diagnosis: Yes Comprehensive pain evaluation performed prior to procedure: Yes Non-operative treatment prior to procedure: Yes - local analgesics and physical therapy Non-operative treatment timeframe: Less than 1 month Rationale for no conservative treatment measures taken, if applicable: N.A Fracture history: First compression fracture Neurologically intact at levels relevant to treatment: Yes Osteoporosis: Primary Osteoporosis treatment: Calcium with vitamin D Is the fracture greater than or equal to 4 months old without edema? No Does the patient have foraminal stenosis? No Does the patient have any other degenerative spine diseases? No Does the patient have facet anthropathy? No Does the patient have other significant coexistent consistent spiny bone generators? No Did the patient have any other concurrent procedures? No Does the patient have an unstable fracture in the same/adjacent spinal region? No Does the patient have painful metastases? No Did the patient receive the procedure as prophylactic treatment for osteoporosis? No Signed by: Shivam Hollins MD on 09/18/2019 5:23 PM
[2019-09-18] MEDS ORDERED: LACTATED RINGER'S 1,000 ML IV SCH (17:45)
[2019-09-18 18:35] VITALS: BP 167/87
[2019-09-18] MEDS ORDERED: PROPOFOL IV EMULSION 10 MG/ML 20 ML VIAL ONE (18:37)
[2019-09-18] MEDS ORDERED: DEXAMETHASONE SOD PHOS INJ 4 MG/ML VIAL ONE (18:37)
[2019-09-18] MEDS ORDERED: ROCURONIUM BROMIDE 10 MG/ML 5ML VIAL ONE (18:37)
[2019-09-18] MEDS ORDERED: LIDOCAINE HCL 2% LOCAL INJ 5 ML SDV VIAL INJ ONE (18:37)
[2019-09-18] MEDS ORDERED: ONDANSETRON HCL INJ 2MG/ML 2ML 2 MG/ML VIAL ONE (18:37)
[2019-09-18] MEDS ORDERED: SEVOFLURANE INHAL SOLN 250 ML PEN BTL ONE (18:37)
--- NOTE | 2019-09-18 18:40 | NUR ---
Received patient at this time from PACU s/p kyphoplasty, a/ox2-3, was medicated prior to leaving PACU for pain, assisted with transfer to bed, call light within reach, bed in low locked position, bed alarms in place, at bedside. Offered a sandwich and fluids. No N/V.
--- NOTE | 2019-09-18 19:10 | NUR ---
Rounds completed, report given to on coming nurse, call light within reach, safety in place,
[2019-09-18] MEDS ORDERED: FENTANYL CITRATE/PF 100MCG/2 ML INJ ONE (19:17)
[2019-09-18] MEDS ORDERED: HYDRALAZINE HCL 20 MG/ML VIAL IV PRN (19:30)
[2019-09-18] MEDS ORDERED: ONDANSETRON HCL INJ 2MG/ML 2ML 2 MG/ML VIAL IV PRN (19:30)
[2019-09-18] MEDS ORDERED: ACETAMINOPHEN 325 MG TAB PO PRN (19:30)
[2019-09-18 20:29] VITALS: BP 161/85
[2019-09-18 20:45] VITALS: BP 161/85
--- NOTE | 2019-09-18 20:45 | NUR ---
PATIENT RESTING IN BED IN STABLE CONDITION, NO SIGNS OF DISTRESS NOTED. IS AT BEDSIDE AND PATIENT VOICES PAIN AT A LEVEL OF 7 AND WAS TOLD THAT SHE WILL BE MEDICATED PROMPTLY. IV FLUIDS ARE RUNNING AT [facility] AND PATIENT IS AOX2-3. BED IS IN LOWEST POSITION, BOTH SIDE RAILS ARE UP, CALL LIGHT IS WITHIN EASY REACH, WILL CONTINUE TO MONITOR
[2019-09-18] MEDS ORDERED: SIMVASTATIN 40 MG TAB PO SCH (21:00)
[2019-09-18] MEDS: HYDROCODONE/APAP 7.5MG-325MG 1 EA TAB PO PRN (22:00)
[2019-09-18] MEDS ORDERED: PANTOPRAZOLE 40 MG 10ML VIAL IV STA (22:32)
[2019-09-18] MEDS ORDERED: LORAZEPAM 0.5 MG TAB PO ONE (23:00)
--- NOTE | 2019-09-18 23:15 | NUR ---
PATIENT COMPLAINED OF HEARTBURN AND REFLUX, TALKED TO BRANDO PORRAS AND ORDERED IV PROTONIX. WHILE WAITING THROUGH PHARMACY PATIENT BECAME VERY ANXIOUS AND JITTERY. SHE WAS ASSURED THAT EVERYTHING WAS OK AND MEDICATION WAS COMING, TECH ALSO WAS THERE FOR SUPPORT. BRANDO ORDERED ATIVAN AND PATIENT WAS GIVEN MEDICATION, CONTINUING TO MONITOR.
--- NOTE | 2019-09-18 23:45 | NUR ---
PATIENT NOW RELAXED, RESTING IN BED NO SIGNS OF DISTRESS.
[2019-09-19] VITALS: BP 145/80
[2019-09-19 03:26] LABS: BASOPHILS % 0.2 % (0.0-1.0); HEMATOCRIT 36.9 % (34.2-44.1); HEMOGLOBIN 12.3 g/dL (12.0-16.0); LYMPHOCYTES # (AUTO) 1.6 (1.0-3.2); LYMPHOCYTES % 14.3 % (18.0-39.1); MEAN CORPUSCULAR HGB CONC 33.3 g/dL (31-35); MONOCYTES # (AUTO) 0.7 (0.2-0.8); MONOCYTES % 6.2 % (4.4-11.3); NEUTROPHILS # (AUTO) 8.9 (2.1-6.9); NEUTROPHILS % 78.9 % (38.7-80.0); PLATELET COUNT 335 x10e3/uL (140-360); RED CELL DISTRIBUTION WIDTH 15.1 % (11.7-14.4)
[2019-09-19 03:46] LABS: BLOOD UREA NITROGEN 10 mg/dL (7-26); BUN/CREATININE RATIO 14 (6-25); CALCIUM 9.3 mg/dL (8.4-10.2); CARBON DIOXIDE 22 mmol/L (22-29); CHLORIDE 100 mmol/L (98-107); EST GLOMERULAR FILTRATION RATE > 60 ML/MIN (60-); GLUCOSE 103 mg/dL (74-118); SODIUM 134 mmol/L (136-145)
[2019-09-19 03:48] LABS: MAGNESIUM 1.9 MG/DL (1.3-2.1); PHOSPHORUS 3.8 MG/DL (2.3-4.7)
[2019-09-19 04:00] VITALS: BP 143/74
[2019-09-19 04:08] LABS: THYROID STIMULATING HORMONE 1.218 uIU/mL (0.350-4.940)
[2019-09-19] MEDS ORDERED: LEVOTHYROXINE SODIUM 25 MCG TABLET PO SCH (06:00)
[2019-09-19] MEDS ORDERED: TYLENOL WITH C1 EACH PO (06:58)
[2019-09-19] MEDS ORDERED: LORAZEPAM 0.5 MG TAB PO PRN (07:00)
--- NOTE | 2019-09-19 07:00 | NUR ---
Received bedside shift report from MANUEL Simmons. Patient awake at this time, denies pain at this time with no visible signs of distress noted. Pericare done with diaper change, purewick in place. Call light within reach.
[2019-09-19] MEDS ORDERED: PANTOPRAZOLE SOD 40 MG TABEC PO SCH (07:30)
[2019-09-19 08:00] VITALS: BP 147/92
[2019-09-19] MEDS ORDERED: ONDANSETRON HCL 4 MG ORAL DISINTEGRATING TAB PO PRN (08:15)
[2019-09-19 08:20] VITALS: BP 147/92
[2019-09-19] MEDS: HYDROCODONE/APAP 7.5MG-325MG 1 EA TAB PO PRN (08:48)
[2019-09-19] MEDS ORDERED: PREDNISONE 5 MG TAB PO SCH (09:00)
[2019-09-19] MEDS ORDERED: LEVOTHYROXINE SODIUM 50 MCG TAB PO SCH (09:00)
[2019-09-19] MEDS ORDERED: CLOPIDOGREL BISULFATE 75 MG TAB PO SCH (09:00)
[2019-09-19] MEDS ORDERED: BUPROPION HCL 150 MG TABCR PO SCH (09:00)
[2019-09-19] MEDS ORDERED: BUPROPION HCL 100 MG TAB PO SCH (09:00)
[2019-09-19] MEDS ORDERED: Ubidecarenone (Coq-10) 200 MG PO SCH (09:00)
[2019-09-19] MEDS ORDERED: TRIMETHOPRIM 100 MG PO SCH (09:00)
[2019-09-19] MEDS ORDERED: LACTOBACILLUS ACIDOPHILUS CAPSULE PO SCH (09:00)
[2019-09-19] MEDS ORDERED: MULTIVITAMINS/MINERALS TAB PO SCH (09:00)
[2019-09-19] MEDS ORDERED: SIMVASTATIN 40 MG TAB PO SCH (09:00)
[2019-09-19] MEDS ORDERED: LORATADINE 10 MG TAB PO SCH (09:00)
[2019-09-19] MEDS ORDERED: BIOTIN 10000 UNIT PO SCH (09:00)
[2019-09-19] MEDS ORDERED: RISPERIDONE 0.5 MG TAB PO PRN (10:00)
[2019-09-19] MEDS ORDERED: HALOPERIDOL LACTATE 5 MG/ML VIAL IM PRN (10:00)
--- NOTE | 2019-09-19 11:47 | NUR ---
CLEARED BY PHYSICAL THERAPY TO GO HOME WITHOUT PT.
[2019-09-19 12:00] VITALS: BP 131/62
--- NOTE | 2019-09-19 12:24 | NUR ---
CLEARED BY IR TO [facility].
--- NOTE | 2019-09-19 12:30 | NUR ---
Obs review done, patient to dc today
--- NOTE | 2019-09-20 06:22 | Discharge Summary ---
ADMISSION DIAGNOSES: Acute L2 compression fracture, severe anxiety, hypertension, depression, hypothyroidism, coronary artery disease, and hyperlipidemia. DISCHARGE DIAGNOSES: Acute L2 compression fracture, severe anxiety, hypertension, depression, hypothyroidism, coronary artery disease, hyperlipidemia, status post vertebroplasty with kyphoplasty. HISTORY: CAD, hypothyroidism, mitral valve prolapse, hypertension, TIA, depression, and hyperlipidemia. SURGICAL HISTORY: Hysterectomy, bilateral rotator cuff repair, left hand surgery, left foot surgery, hernia repair, bilateral cataract and neck surgery. FAMILY HISTORY: The patient's mom had diabetes and cancer. SOCIAL HISTORY: The patient admits to occasional alcohol use. HOSPITAL COURSE: 83-year-old female with chronic lower back pain and leg pain, who had treatment with lumbar injections, JERRICA, and chiropractic treatments, initially improved but then continued to worsen so she is therefore an elective kyphoplasty. She was sent by her physician because an outpatient MRI showed a L2 compression fracture of 60%. IR was consulted and the patient had a kyphoplasty. The following day, the pain is controlled and patient is independent per Physical therapy recommendation. The patient will discharge home and follow up with primary care in 1 to 2 weeks. The patient understands discharge instructions and agrees to plan. Dictated by Vonnie Thomas NP MD LEVI Sheriff/MIKE /[id number]
--- NOTE | 2019-09-20 20:15 | Consultation ---
DATE OF CONSULTATION: 09/19/2019 Psychiatric Consultation The patient evaluated and events noted. REASON FOR CONSULTATION: To evaluate the patient's psychosis. HISTORY OF PRESENT ILLNESS: The patient is an 83-year-old female, admitted to the hospital for acute L2 compression. Psychiatric consultation is called to evaluate for psychosis. As per the medical record, the patient had compression fracture. She underwent kyphoplasty. Upon evaluation today, the patient was found to be in the room with her . She is alert, awake, and oriented to situation. She is calm and cooperative. She states that she is doing better now and she is not having anxiety, but she was having a lot of anxiety and depression before she was diagnosed with a compression fracture and suffering a lot of pain. She denies any feeling hopeless or helpless. She denies any suicidal or homicidal ideation. She reports sleeping, eating fair. She is not confused or agitated. Collaborative report from the states that she is doing better. She is almost at baseline. claimed that after the surgery she was confused, but has since been doing much better. PAST PSYCHIATRIC HISTORY: She denies past psychiatric history. She denies past suicide attempts. She denies alcohol or drug use. FAMILY HISTORY: Denies. SOCIAL HISTORY: The patient lives with her . MENTAL STATUS EXAM: The patient is an elderly female. She is alert, awake, and oriented to situation. Her mood is fair. Affect is congruent with mood. Psychomotor state is passive. Denies suicidal or homicidal ideation. Denies any hallucination. Thought process is concrete. No delusion elicited. Insight and judgment are fair. Memory appears to be grossly intact. CURRENT MEDICATIONS: 1. [place] p.r.n. 2. Prednisolone. 3. Vitamin. 4. Loratadine. 5. Protonix. 6. Plavix. 7. Wellbutrin XL. 8. Synthroid. 9. Zocor. 10. Hydralazine. 11. Fentanyl. 12. Ondansetron. 13. Ativan p.r.n. 14. Acetaminophen. 15. . LABORATORY DATA: Current labs, WBC is 11.28, RBC 4.10, hemoglobin 12.3, hematocrit 36.9, platelets 335. Chemistry, sodium 134, potassium 4, chloride 100, CO2 of 22, BUN 10, creatinine 0.7. ASSESSMENT: 1. Adjustment disorder, mixed mood. 2. Rule out delirium and psychosis. PLAN: 1. Continue Wellbutrin XL 450 mg p.o. daily. 2. Add Risperdal p.r.n. p.o. 3. Add Haldol p.r.n. IM. 4. Continue Ativan p.r.n. p.o. 5. Monitor for psychosis and agitation and mood. 6. Supportive therapy. Thank you for this consultation. Dictated by Apple Lucio PA-C Fabrice Atkinson MD QTV/MODL /[id number]
== END 2019-09-19 13:19 | disposition home or self-care (01) ==
LOC: DX 11:30 → MED/SURG 18:00
PROVIDERS: ADMIT Internal Medicine; ATTEND Internal Medicine
DX: M80.08XA Age-related osteoporosis with current pathological fracture, vertebra(e), initial encounter for fracture (principal); F41.9 Anxiety disorder, unspecified; I10 Essential (primary) hypertension; E03.9 Hypothyroidism, unspecified; E78.5 Hyperlipidemia, unspecified; F43.23 Adjustment disorder with mixed anxiety and depressed mood; Z86.73 Personal history of transient ischemic attack (TIA), and cerebral infarction without residual deficits; F33.9 Major depressive disorder, recurrent, unspecified
CPT/HCPCS: 22514; 36415 ×2; 71046; 80048; 83735; 84100; 84443; 85025 ×2; 93005; 97139; 97161; 97530; C9113; G0378 ×2; J0360; J1100; J2001 ×2; J2405; J2704; J3010; J7512; S0164

== ENCOUNTER 2022-07-17 07:45 | Observation (INO) | payer MEDICARE ==
[2022-07-12 10:17] LABS: BASOPHILS # (AUTO) 0.1 (0.0-0.1); BASOPHILS % 0.7 % (0.0-1.0); EOSINOPHILS # (AUTO) 0.1 (0.0-0.4); EOSINOPHILS % 1.8 % (0.0-6.0); HEMATOCRIT 42.3 % (34.2-44.1); HEMOGLOBIN 13.2 g/dL (12.0-16.0); LYMPHOCYTES # (AUTO) 1.9 (1.0-3.2); LYMPHOCYTES % 26.2 % (18.0-39.1); MEAN CORPUSCULAR HEMOGLOBIN 31.3 pg (28-32); MEAN CORPUSCULAR HGB CONC 31.2 g/dL (31-35); MEAN CORPUSCULAR VOLUME 100.2 fL (81-99); MONOCYTES # (AUTO) 0.6 (0.2-0.8); MONOCYTES % 7.7 % (4.4-11.3); NEUTROPHILS # (AUTO) 4.5 (2.1-6.9); NEUTROPHILS % 63.2 % (38.7-80.0); PLATELET COUNT 238 x10e3/uL (140-360); RED BLOOD COUNT 4.22 x10e6/uL (3.6-5.1); RED CELL DISTRIBUTION WIDTH 13.6 % (11.7-14.4)
[~2022-07-17] VITALS: Ht 157.5 cm; Wt 57.2 kg
[~2022-07-17 07:45] MED LIST changes: +ARICEPT10 MG PO; +ATORVASTATIN CA20 MG PO; +CALCET TABLET1 EACH PO; +CELECOXIB 200 MG CAP ONE; +COQ-10100 MG; +DEXAMETHASONE SOD PHOS 10 MG/1 ML VIAL ONE; +FEROSUL325 MG PO; +FISH OIL 1,201200 MG PO; +GABAPENTIN 300 MG CAP ONE; +LUTEIN20 MG; +MAGNESIUM OXID400 MG PO; +MAGOX 400400 MG PO; +MELATONIN3 MG PO; +MIRTAZAPINE7.5 MG PO; +MULTIVITAMIN PO; +PROLIA60 MG/1 ML; +SERTRALINE HCL50 MG PO; +TYLENOL WITH C1 EACH PO; +VITAMIN D250 MC1 PO; +ZINC PO
[2022-07-17] MEDS ORDERED: ROPIVACAINE 246.25 MG, EPINEPHRINE HCL 1:1000 1ML 0.5 MG, CLONIDINE HCL 0.08 MG, KETORO... INJ ONE ×5 (08:00)
[2022-07-17] MEDS ORDERED: Vancomycin IV 1,000 MG ONE (09:54)
[2022-07-17] MEDS ORDERED: SODIUM CHLORIDE 0.9% 500ML 500 ML ONE (09:54)
[2022-07-17] MEDS ORDERED: TRANEXAMIC ACID 20 ML ONE (09:54)
[2022-07-17] MEDS ORDERED: ACETAMINOPHEN 650 MG SUPP PR PRN (12:00)
[2022-07-17] MEDS ORDERED: HYDROCODONE/APAP 5MG-325MG TAB PO PRN (12:00)
[2022-07-17] MEDS ORDERED: DIPHENHYDRAMINE HCL INJ 50 MG/ML VIAL IV PRN (12:00)
[2022-07-17] MEDS ORDERED: DOCUSATE SODIUM 100 MG CAP PO PRN (12:00)
[2022-07-17] MEDS ORDERED: ONDANSETRON HCL INJ 2MG/ML 2ML 2 MG/ML VIAL IV PRN (12:00)
[2022-07-17] MEDS ORDERED: FENTANYL CITRATE/PF 100MCG/2 ML INJ ONE (12:19)
[2022-07-17] MEDS ORDERED: ETOMIDATE 2 MG/ML 10 ML INJ IV ONE (12:43)
[2022-07-17] MEDS ORDERED: ONDANSETRON HCL INJ 2MG/ML 2ML 2 MG/ML VIAL ONE (12:43)
[2022-07-17] MEDS ORDERED: POVIDONE IODINE 0.05% 0.05 % ML PO ONE (12:43)
[2022-07-17] MEDS ORDERED: LIDOCAINE HCL 2% LOCAL INJ 5 ML SDV VIAL INJ ONE (12:43)
[2022-07-17] MEDS ORDERED: SEVOFLURANE INHAL SOLN 250 ML PEN BTL ONE (12:43)
[2022-07-17] MEDS ORDERED: EPHEDRINE SULFATE INJ 50 MG/ML VIAL ONE (12:43)
[2022-07-17] MEDS ORDERED: ROPIVACAINE 0.5% 5 MG/ML 30 ML SDV ONE (13:04)
[2022-07-17 13:32] VITALS: BP 102/64
[2022-07-17 13:42] VITALS: BP 102/64
[2022-07-17] MEDS: SODIUM CHLORIDE 0.9% 1000ML 1,000 ML IV SCH (14:00)
[2022-07-17] MEDS: HYDROCODONE/APAP 7.5MG-325MG 1 EA TAB PO PRN ×2 (15:42→23:13)
[2022-07-17] MEDS: ASPIRIN 325 MG TAB PO SCH (17:01)
[2022-07-17] MEDS: CELECOXIB 200 MG CAP PO SCH (17:02)
[2022-07-17 17:12] VITALS: BP 102/56
[2022-07-17 20:00] VITALS: BP_SYST 102; BP_SYST 91; BP_DIAS 56
[2022-07-18] VITALS (9 sets, daily range): BP systolic 87–114; BP diastolic 50–64
[2022-07-18] MEDS: SODIUM CHLORIDE 0.9% 1000ML 1,000 ML IV SCH (01:17)
[2022-07-18 04:55] LABS: HEMATOCRIT 31.9 % (34.2-44.1); HEMOGLOBIN 10.5 g/dL (12.0-16.0)
[2022-07-18] MEDS: CELECOXIB 200 MG CAP PO SCH (08:57)
[2022-07-18] MEDS: ASPIRIN 325 MG TAB PO SCH (08:57)
[2022-07-18] MEDS ORDERED: LEVOTHYROXINE SODIUM 25 MCG TABLET PO SCH (09:00)
[2022-07-18] MEDS ORDERED: PANTOPRAZOLE SOD 40 MG TABEC PO SCH (09:00)
[2022-07-18] MEDS ORDERED: SERTRALINE HCL 50 MG TAB PO SCH (09:00)
[2022-07-18] MEDS ORDERED: ACETAMINOPHEN 1000 MG/100 ML IV PRN (12:00)
== END 2022-07-18 13:27 | disposition home or self-care (01) ==
LOC: OR 07:45 → PACU V 12:26 → MED/SURG 13:15
PROVIDERS: ADMIT Specialist; ATTEND Specialist
DX: M17.0 Bilateral primary osteoarthritis of knee (principal); I12.9 Hypertensive chronic kidney disease with stage 1 through stage 4 chronic kidney disease, or unspecified chronic kidney disease; N18.30 Chronic kidney disease, stage 3 unspecified; I25.10 Atherosclerotic heart disease of native coronary artery without angina pectoris; J45.909 Unspecified asthma, uncomplicated; E78.00 Pure hypercholesterolemia, unspecified; Z20.822 Contact with and (suspected) exposure to COVID-19; Z01.818 Encounter for other preprocedural examination
CPT/HCPCS: 0223U; 27447; 36415 ×2; 71046; 73560; 85014; 85018; 85025; 86850; 86900; 86920; 93005; 94799 ×2; 97110; 97116 ×3; 97161; 97530 ×2; C1713 ×2; C1776 ×4; G0378 ×2; J0171; J0690 ×2; J1100; J1885; J2001; J2405; J2795; J3010; J3370; J7030; J7040; S0164

== ENCOUNTER 2022-09-18 10:58 | Outpatient (RCR) | payer MEDICARE ==
[~2022-09-18 10:58] MED LIST changes: -CELECOXIB 200 MG CAP ONE; -DEXAMETHASONE SOD PHOS 10 MG/1 ML VIAL ONE; -GABAPENTIN 300 MG CAP ONE
== END 2022-09-19 ==
LOC: PT 10:58
PROVIDERS: ATTEND Physician Assistant
DX: Z47.1 Aftercare following joint replacement surgery (principal); Z96.652 Presence of left artificial knee joint

== ENCOUNTER 2022-10-16 11:00 | Outpatient (RCR) | payer MEDICARE | END 2022-10-17 | LOC: PT 11:00 | PROVIDERS: ATTEND Physician Assistant | DX: Z47.1 Aftercare following joint replacement surgery (principal); Z96.652 Presence of left artificial knee joint ==

== ENCOUNTER 2022-10-27 10:55 | Outpatient (RCR) | payer MEDICARE | END 2022-11-17 | LOC: PT 10:55 | PROVIDERS: ATTEND Physician Assistant | DX: Z47.1 Aftercare following joint replacement surgery (principal); Z96.652 Presence of left artificial knee joint ==